=== PATIENT | female | born 1955 | race Caucasian/White ===

== ENCOUNTER 2016-07-10 21:06 | Emergency (ER) | payer OTHER ==
--- NOTE | 2016-08-08 17:08 | ER ---
ADMIT: 07/10/2016 RM/LOC: ER [facility] MR#: [id number] [facility] [address] [place] [id number] [address]ST[address]YN[address] [place] [address] Emergency Room Report SEX: F AGE: 60 : 1955 DATE: 07/10/2016 HISTORY OF PRESENT ILLNESS: A 60-year-old female, brought to the Emergency Department after co-worker found she was confused and somewhat agitated. Cannot obtain history from the patient as she is confused. The onset of this was unknown. She is normally alert and oriented x4. Walks without assistance. Past history cannot be obtained as again the patient is confused. PHYSICAL EXAMINATION: GENERAL: Reveals a 60-year-old, in moderate amount of distress. She is alert, but her speech is abnormal. She opened her eyes to commands slowly. Cranial nerves appear grossly intact. She will not cooperate for cerebellar exam nor motor or sensory because she appears agitated. NECK: Supple. Trachea is midline. HEENT: Normocephalic. Pupils are 4 mm and sluggishly reactive. Gag is intact. Airway is intact. RESPIRATORY: Clear. CARDIOVASCULAR: Regular rate and rhythm with no murmurs. ABDOMEN: Distended and tympanic. EXTREMITIES: Unremarkable. PERTINENT LABORATORY DATA: CBC was within normal limits. Sodium was 149, potassium 3.0, BUN 37, and creatinine 1.2. Cardiac markers, CK-MB was 13, total CK 370. Troponin was 0.977. CT scan of the head revealed intraparenchymal hemorrhage in the left occipital lobe and ischemic changes in the left parietal lobe as well. The patient was subsequently transferred to [facility] as there were no beds available in this facility. DIAGNOSES: 1. Acute coronary artery syndrome. 2. Hypernatremia. 3. Acute renal failure. 4. Intracranial bleed. Jack Ball MD/ [place] JOB #: [id number] CC: Jorge Alberto Max MD, Attending Physician Akash Couch MD, Family Physician
== END 2016-07-11 00:15 | disposition short-term general hospital (02) ==
LOC: ER 21:06
DX: I61.8 Other nontraumatic intracerebral hemorrhage (principal); I24.9 Acute ischemic heart disease, unspecified; N17.9 Acute kidney failure, unspecified; E87.0 Hyperosmolality and hypernatremia